=== PATIENT | female | born 1950 | race Caucasian/White ===

== ENCOUNTER 2020-10-18 12:53 | Outpatient (CLI) | payer MEDICARE, OTHER, SELFPAY ==
--- NOTE | ~2020-10-18 | MM_ITS ---
EXAMINATION: MM screening humberto BI w toshia HISTORY: Screening mammogram TECHNIQUE: Craniocaudal and mediolateral oblique 3-D tomosynthesis images were obtained and synthetic 2-D images were generated. CAD analysis was submitted and interpreted. COMPARISON: 06/21/2019, 05/19/2017, 01/06/2016 bilateral digital screening mammogram examinations BREAST PARENCHYMAL COMPOSITION: There are scattered areas of fibroglandular density. FINDINGS: There is no evidence of suspicious mass, calcification, or architectural distortion to sugg est malignancy in either breast. There has been no suspicious interval change. IMPRESSION: 1. No mammographic evidence of malignancy. 2. Recommend routine screening mammography in one year. BI-RADS Category 1: Negative Reviewed, dictated and finalized at location B. CIATE PROFESSOR OF KINESIOLOGY
--- NOTE | ~2020-10-18 | DEXA_ITS ---
Bone Density Report Name: Eleni Hull Age: 70 Sex: Female Ethnicity: White Date of : 1950 Indication: osteopenia; parental hip fracture; Referring Provider: ARYAN KAUFFMAN Study: Bone densitometry was performed. Exam Date: October 18, 2020 Accession number: [id number] Bone Density: Region BMD T-score Z-score Classification AP Spine (L1-L4) 0.824 -2.0 0.1 Osteopenia Femoral Neck (Left) 0.705 -1.3 0.5 Osteopenia Total Hip (Left) 0.834 -0.9 0.6 Normal Total Hip Bilateral Avg 0.834 -0.9 0.6 Normal Femoral Neck (Right) 0.682 -1.5 0.3 Osteopenia Total Hip (Right) 0.833 -0.9 0.6 Normal World Health Organization criteria for BMD impression classify patients as: Normal (T-score at or above -1.0), Osteopenia (T-score between -1.0 and -2.5), or Osteoporosis (T-score at or below -2.5). 10-year Fracture Risk(1): Major Osteoporotic Fracture 16% Hip Fracture 3.1% Reported Risk Factors: [place] (), Neck BMD=0.682, BMI=26.8, parental fracture (1) FRAX(R) Version 3.08. Fracture probability calculated for an untreated patient. Fracture probability may be lower if the patient has received treatment. Previous Exams: Region Exam Age BMD T-score BMD Change BMD Change Date g/cm2 vs Baseline vs Previous AP Spine(L1-L4) 10/18/2020 70 0.824 -2.0 -0.039(-4.5%)* -0.039(-4.5%)* 01/08/2016 65 0.863 -1.7 Total Hip(Left) 10/18/2020 70 0.834 -0.9 -0.044(-5.0%)* -0.044(-5.0%)* 01/08/2016 65 0.878 -0.5 Total Hip(Right) 10/18/2020 70 0.833 -0.9 -0.030(-3.5%)* -0.030(-3.5%)* 01/08/2016 65 0.863 -0.6 *Denotes significance at 95% confidence level, LSC for AP Spine = 0.022 g/cm2, LSC for Total Hip = 0.027 g/cm2 Clinical Information Provided by Patient: Parent has had a hip fracture Has used the following medications: Calcium Patient maximum height was 60 Menopause Age: 50 Onset of menses at age 14 Number of children 2 Impression: The patient has low bone mass, based on the Total Spine T-score. The patient has an estimated ten-year risk of hip fracture of 3.1% and an estimated ten-year risk of major fracture of 16%, based on the WHO FRAX algorithm. The patient has risk factors, including: parental hip fracture. The BMD for the AP Spine(L1-L4) decreased, changing by -4.5% since the last DXA exam. The BMD for the Total Hip(Left) decreased, changing by -5.0% since the last DXA exam. The BMD for the Total Hip(Right) decreased, changing by -
== END 2020-10-18 12:54 | disposition home or self-care (01) ==
PROVIDERS: PCP Family Medicine
DX: Z12.31 Encounter for screening mammogram for malignant neoplasm of breast (principal); Z78.0 Asymptomatic menopausal state; M85.89 Other specified disorders of bone density and structure, multiple sites
CPT/HCPCS: 77063; 77067; 77080

== ENCOUNTER 2021-11-10 15:43 | Emergency (ER) | payer MEDICARE, OTHER, SELFPAY ==
--- NOTE | ~2021-11-10 | XR_ITS ---
XR wrist LT min 3V DATE: 11/10/2021 16:02 INDICATION: Generalized left wrist pain following a fall this afternoon TECHNIQUE: 4 views COMPARISON: None FINDINGS: There is diffuse osteopenia. There is a comminuted nondisplaced intra-articular fracture of the distal radius. Normal antegrade in clination of the distal radial articular surface. Normal alignment at the radiocarpal joint. IMPRESSION: Nondisplaced comminuted intra-articular fracture of the distal radius Reviewed, dictated and finalized at location A. TOR IMPRESSION: Nondisplaced comminuted intra-articular fracture of the distal radi us
[2021-11-10 15:51] VITALS: BP 186/79; PULSE 93; RESP 12; TEMP 37.2; O2SAT 99
--- NOTE | 2021-11-10 16:46 | ED.GENADULT ---
HPI - General Adult General Chief complaint: Extremity Injury, Upper Stated complaint: lt wrist inj Source: patient Mode of arrival: ambulatory Limitations: no limitations History of Present Illness HPI narrative: Patient presents for evaluation of left wrist pain. She indicates she was watching her grandchildren ice-skating just prior to arrival when she slipped on the ice. She landed with her left arm outstretched. She did not hit her head nor have loss of consciousness. She is not on blood thinners. She now reports 8 out of 10 pain in the left wrist. Pain is worse with movement. She is right-hand dominant. Denies paresthesias. She tried taking ibuprofen for her pain with some improvement in her symptoms thereafter. Related Data Home Medications Medication Instructions Recorded Confirmed calcium carbonate 600 mg calcium 600 mg PO BID 06/07/21 11/10/21 (1,500 mg) tablet ergocalciferol (vitamin D2) 50,000 50,000 unit PO MONTHLY tablet 06/07/21 08/21/21 unit tablet Allergies Allergy/AdvReac Type Severity Reaction Status Date / Time cimetidine Allergy Unknown Unknown Verified 11/10/21 15:53 erythromycin base Allergy Unknown Unknown Verified 11/10/21 15:53 Penicillins Allergy Unknown Unknown Verified 11/10/21 15:53 ciprofloxacin AdvReac Mild general Verified 11/10/21 15:53 aching from generic med Review of Systems Review of Systems: CONSTITUTIONAL: Denies fever, chills, or sweats. EYES: Denies visual changes, redness, or discharge. ENT: Denies rhinorrhea, congestion, sore throat, or otalgia. CARDIOVASCULAR: Denies chest pain, palpitations, or edema. RESPIRATORY: Denies cough or dyspnea. GASTROINTESTINAL: Denies abdominal pain, nausea, vomiting, or diarrhea. GENITOURINARY: Denies dysuria or hematuria. SKIN: Denies rash or itching. MUSCULOSKELETAL: Reports left wrist pain. Denies back pain NEUROLOGIC: Denies headache, numbness, dizziness, or weakness. PSYCHIATRIC: Denies anxiety or depression. [facility] Past Medical History Medical History Chronic neck pain Dyslipidemia Environmental allergies Osteopenia Surgical History Surgical History No pertinent past surgical history Family History Family History Father Heart disease Social History Social History Smoking status: Never smoker Second hand tobacco smoke exposure: No Additional smoking assessment comments: no smoke around as child Alcohol intake: never Substance use: never Substance use type: does not use Exam Narrative: GENERAL: Well-appearing, well-nourished, and in no acute distress. HEAD: Normocephalic, atraumatic. EYES: PERRLA and EOMI. ENT: Nares clear, no rhinorrhea or epistaxis. Mucous membranes moist. Oropharynx without tonsillar hypertrophy exudate or other lesions. Bilateral TMs pearly bañuelos nonbulging NECK: Supple. No adenopathy or masses. No carotid bruits or JVD CHEST: Clear to auscultation. No respiratory distress. No wheezes rales or rhonchi HEART: Regular rate and rhythm. No murmur heard. Normal peripheral pulses. ABDOMEN: Soft, nontender, nondistended, normal active bowel sounds. EXTREMITIES: Heide over medial aspect of the left wrist. Trace swelling noted to the left wrist. No crepitus. 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 5/5 hand popped corn oven attendant strength right SKIN: Warm, dry, no rash. NEURO: No focal deficits. Alert and oriented x3. PSYCH: Normal mood and affect. Course Course Emergency Course: This is a 71-year-old female that presents with complaints of left wrist pain following a fall just prior to arrival. X-ray showed closed distal radius fracture. She was placed in a sugar tong splint provided with a sling. Post splint neurovascular check intact. Blood pressure was
== END 2021-11-10 17:13 | disposition home or self-care (01) ==
PROVIDERS: Emergency Provider Nurse Practitioner; PCP Family Medicine
DX: S52.572A Other intraarticular fracture of lower end of left radius, initial encounter for closed fracture (principal); W00.0XXA Fall on same level due to ice and snow, initial encounter; E78.5 Hyperlipidemia, unspecified; M81.0 Age-related osteoporosis without current pathological fracture
CPT/HCPCS: 29125; 73110; 99214; A4565; G0463

== ENCOUNTER 2022-10-21 14:00 | Outpatient (CLI) | payer OTHER, MEDICARE, SELFPAY ==
--- NOTE | ~2022-10-21 | DEXA_ITS ---
Bone Density Report Name: HOLLEY FERNANDEZ Age: 72 Sex: Female Ethnicity: White Date of : 1950 Indication: osteopenia; parental hip fracture; prior fracture; postmenopausal Referring Provider: MEJIA, ARIS Study: Bone densitometry was performed. Exam Date: October 21, 2022 Accession number: [id number] Bone Density: Region BMD T-score Z-score Classification AP Spine(L1, L2, L3) 0.737 -2.6 -0.4 Osteoporosis Femoral Neck (Left) 0.705 -1.3 0.6 Osteopenia Total Hip (Left) 0.832 -0.9 0.7 Normal Femoral Neck (Right) 0.692 -1.4 0.5 Osteopenia Total Hip (Right) 0.811 -1.1 0.5 Osteopenia Total Hip Mean 0.821 -1.0 0.6 Normal World Health Organization criteria for BMD impression classify patients as: Normal (T-score at or above -1.0), Osteopenia (T-score between -1.0 and -2.5), or Osteoporosis (T-score at or below -2.5). 10-year Fracture Risk: FRAX not reported because: Some T-score for Spine Total or Hip Total or Femoral Neck at or below -2.5 Prior hip or vertebral fracture Previous Exams: Region Exam Age BMD T-score BMD Change BMD Change Date g/cm2 vs Baseline vs Previous AP Spine (L1-L3) 10/21/2022 72 0.737 -2.6 -0.121 (-14.2% -0.080 (-9.8%) 10/18/2020 70 0.817 -1.8 -0.041 (-4.8%) -0.041 (-4.8%) 01/08/2016 65 0.858 -1.5 Total Hip(Left) 10/21/2022 72 0.832 -0.9 -0.046 (-5.2%) -0.002 (-0.2%) 10/18/2020 70 0.834 -0.9 -0.044 (-5.0%) -0.044 (-5.0%) 01/08/2016 65 0.878 -0.5 Total Hip(Right) 10/21/2022 72 0.811 -1.1 -0.052 (-6.0%) -0.022 (-2.6%) 10/18/2020 70 0.833 -0.9 -0.030 (-3.5%) -0.030 (-3.5%) 01/08/2016 65 0.863 -0.6 *Denotes significance at 95% confidence level, LSC for AP Spine = 0.022 g/cm2, LSC for Total Hip = 0.027 g/cm2 Clinical Information Provided by Patient: Have had a previous hip or vertebral fracture Has had a low trauma fracture Parent has had a hip fracture Has used the following medications: Vitamin D, Calcium Patient maximum height was 60 Menopause Age: 50 Onset of menses at age 14 Number of children 2 Impression: The patient has established osteoporosis, based on the Total Spine T-score and the existence of a prior fracture. The patient has risk factors, including: parental hip fracture, previous fracture. The BMD for the AP Spine (L1-L3) decreased, changing by -9.8% since the last DXA exam. Discussion: HIGH RISK OF FRACTURE. BONE DENSITY IS UNDESIRABLY LOW AT ONE OR M
== END 2022-10-21 14:01 | disposition home or self-care (01) ==
LOC: ANHIMG 14:06
PROVIDERS: PCP Family Medicine; Visit Provider Internal Medicine
DX: M81.0 Age-related osteoporosis without current pathological fracture (principal); M85.852 Other specified disorders of bone density and structure, left thigh; M85.851 Other specified disorders of bone density and structure, right thigh; Z87.81 Personal history of (healed) traumatic fracture
CPT/HCPCS: 77080

== ENCOUNTER → 2023-02-10 15:44 | Outpatient (CLI) | payer MEDICARE, SELFPAY ==
--- NOTE | ~2023-02-10 | XR_ITS ---
Lumbosacral Spine: AP and lateral views Clinical History: Pain Findings: The normal lordotic curve is maintained. No fracture or subluxation evident. There is mild degenerative disc narrowing throughout the lumbar spine. There is mild to moderate facet arthropathy, worse from L3 through S1. The sacroiliac joints are normally outlined. Impression: Mild degenerative spondylosis overall, as detailed above. Reviewed, dictated and finalized at location . Impression: Mild degenerative spondylosis overall, as detailed above.
== END ==
PROVIDERS: PCP Family Medicine; Visit Provider Family Medicine
DX: M47.816 Spondylosis without myelopathy or radiculopathy, lumbar region (principal)
CPT/HCPCS: 72100

== ENCOUNTER 2023-10-02 14:16 | Emergency (ER) | payer MEDICARE, SELFPAY ==
--- NOTE | 2023-10-02 14:36 | ED.GENADULT ---
HPI - General Adult General Chief complaint: Upper Respiratory Infection Stated complaint: Cough, Congestion Source: patient, RN notes reviewed and old records reviewed Mode of arrival: ambulatory Limitations: no limitations History of Present Illness HPI narrative: 73-year-old female presents with complaint cough and congestion this started this a.m. Patient states her PCP and was told she probably did have pneumonia but could come here to get a chest x-ray if she was concerned. Patient denies shortness of breath, chest pain, wheezing, dizziness, fevers. Patient states to COVID test at home today that was negative. MD complaint: Cough Onset (ago): day(s) (1) Related Data Home Medications Medication Instructions Recorded Confirmed calcium carbonate 600 mg calcium 600 mg PO BID 06/07/21 10/02/23 (1,500 mg) tablet (Calcium) Allergies Allergy/AdvReac Type Severity Reaction Status Date / Time cimetidine Allergy Unknown Unknown Verified 10/02/23 14:41 erythromycin base Allergy Unknown Unknown Verified 10/02/23 14:41 Penicillins Allergy Unknown Unknown Verified 10/02/23 14:41 Review of Systems Constitutional: Constitutional: Reports no additional constitutional complaints, Denies body ache(s), Denies chills, Denies fatigue, Denies fever(s) and Denies headache(s) Eyes: Eyes: Reports no additional eye complaints and Denies blurry vision ENT: Reports system reviewed and no additional complaints, except as documented, Denies vertigo, Denies dizziness, Denies ear discharge, Denies otalgia, Denies facial pain, Denies headache(s), Reports nasal congestion, Denies nasal discharge, Denies sinus pain, Denies sinus pressure and Denies sore throat Cardiovascular: Cardiovascular: Reports no additional cardiovascular complaints, Denies chest pain, Denies chest pain at rest, Denies rapid heart rate and Denies dyspnea Respiratory: Respiratory: Reports no additional respiratory complaints, Denies chest congestion, Reports cough, Denies pain on inspiration, Denies pain with cough and Denies dyspnea Gastrointestinal: Gastrointestinal: Denies abdominal pain, Denies diarrhea, Denies nausea and Denies vomiting Integumentary/Breasts: Skin/Breast: Denies rash Neurologic: Reports system reviewed and no additional complaints, except as documented, Denies vertigo, Denies dizziness and Denies headache(s) Endocrine: Endocrine: Denies fatigue [facility] Past Medical History Medical History Chronic low back pain Chronic neck pain Dyslipidemia Environmental allergies Osteopenia Surgical History Surgical History No pertinent past surgical history Family History Family History Father Heart disease Social History Social History Smoking status: Never smoker Second hand tobacco smoke exposure: No Additional smoking assessment comments: no smoke around as child Alcohol intake: never Substance use: never Substance use type: does not use Lack of Transportation: No Lack of Food: Never True Current Housing: I Have Housing Concerned About Future Housing: No Difficulty Paying Gas/Electric Bills: No Difficulty Paying for Meds: No Currently Unemployed: No Education: High School Diploma/GED Difficulty w/ Childcare or Family Care: No Occupation/Education: retired Gender identity (if verbalized by the patient): Female Spiritual care concerns: No Comments At the time of my signature, I reviewed and agree with the nursing past medical, surgical, social, and family history. There is no relevant family history pertinent to the patient complaint. Exam Const: General: cooperative, healthy appearing, no acute distress and well nourished Nutritional Appearance: well nourished Orientation/conscious
[2023-10-02 14:39] VITALS: BP 159/85; PULSE 97; RESP 16; TEMP 36.9; O2SAT 98
== END 2023-10-02 14:57 | disposition home or self-care (01) ==
PROVIDERS: Emergency Provider Registered Nurse; PCP Family Medicine
DX: J06.9 Acute upper respiratory infection, unspecified (principal); E78.5 Hyperlipidemia, unspecified
CPT/HCPCS: 99213; G0463

== ENCOUNTER 2023-12-09 00:13 | Day surgery (SDC) | payer MEDICARE, SELFPAY ==
[2023-11-17 09:47] VITALS: BMI 27.3
--- NOTE | 2023-12-05 12:55 | SUR.PREOP ---
Patient called regarding upcoming procedure. Voicemail left regarding appointment times.
--- NOTE | 2023-12-08 14:51 | PM.HPGS ---
History of Present Illness History of Present Illness Consent: Risks, benefits, and alternatives have been discussed and questions answered. Patient agrees to proceed with procedure. Chief complaint: History colon polyps Narrative: Eleni Hull is a 73 year old female Referred for colon cancer screening. She has a history of polyps. Review of Systems Review of Systems: All systems reviewed & are unremarkable except as noted in HPI and below PMFSH Past Medical History Medical History Chronic low back pain Chronic neck pain Closed left radial fracture (~10/2021) Dyslipidemia Environmental allergies History of colon polyps Osteoporosis Family History Family History Father Heart disease Social History Social History Smoking status: Never smoker Second hand tobacco smoke exposure: No Additional smoking assessment comments: no smoke around as child Alcohol intake: never Substance use: never Substance use type: does not use Lack of Transportation: No Lack of Food: Never True Current Housing: I Have Housing Concerned About Future Housing: No Difficulty Paying Gas/Electric Bills: No Difficulty Paying for Meds: No Currently Unemployed: No Education: High School Diploma/GED Difficulty w/ Childcare or Family Care: No Living arrangements: with family Occupation/Education: retired Gender identity (if verbalized by the patient): Female Spiritual care concerns: No Meds Home Medications and Allergies Home Medications Medication Instructions Recorded Confirmed Type calcium carbonate 600 mg calcium 600 mg PO BID 06/07/21 12/09/23 History (1,500 mg) tablet (Calcium) fluticasone propionate 50 2 spray intranasal DAILY 10/20/23 12/09/23 History mcg/actuation nasal spray,suspension (Flonase Allergy Relief) vitamins A,C,I-mdaf-phdmns 2,148 2 tablet PO BID 10/20/23 12/09/23 History mcg-113 mg-45 mg-17.4 mg tablet (PreserVision AREDS) atorvastatin 20 mg tablet (Lipitor) 20 mg PO QHS #90 tabs 10/29/23 12/09/23 Rx cholecalciferol (vitamin D3) 1,250 1,250 mcg PO WEEKLY #12 tabs 10/29/23 12/09/23 Rx mcg (50,000 unit) tablet cyanocobalamin (vitamin B-12) 1,000 mcg sublingual DAILY #90 tabs 10/29/23 12/09/23 Rx 1,000 mcg sublingual tablet Allergies Allergy/AdvReac Type Severity Reaction Status Date / Time cimetidine Allergy Unknown Unknown Verified 12/09/23 09:09 erythromycin base Allergy Unknown Unknown Verified 12/09/23 09:09 Penicillins Allergy Unknown Unknown Verified 12/09/23 09:09 Exam Const: General: alert Orientation/consciousness: patient oriented x3 Resp: Auscultation: clear to auscultation bilaterally Cardio: Rhythm: regular rhythm GI: GI Palp: Yes Soft to palpation and No Tenderness to palpation present (GI) Neuro: General: patient oriented x3 Assessment and Plan Assessment and plan (1) Colon cancer screening: Code(s): Z12.11 - Encounter for screening for malignant neoplasm of colon Status: Acute Assessment and Plan: Colonoscopy with possible biopsy or polypectomy or cautery or injection of substances.
[2023-12-09 09:10] VITALS: BP 163/75; PULSE 80; RESP 16; TEMP 36.6; O2SAT 99
[2023-12-09] MEDS: LACTATED RINGERS 1,000 ML 150 ML IV CONT (09:25)
--- NOTE | 2023-12-09 09:39 | WPDANESEPPF ---
Anes - Initial Pre Proc Eval Procedure: Operation Date: 12/09/23 10:30 Proposed Procedures p Colonoscopy - Osmin Valentine MD Date/Time: 12/09/23 09:39 Surgeon: Osmin Valentine MD Pre Op Diagnosis: History colon polyps Patient Data Age: 73 Gender: F Height: 1.52 m Weight: 62.3 kg Last Vital Signs Temp 36.6 C 12/09/23 09:10 Pulse 80 12/09/23 09:10 Resp 16 12/09/23 09:10 BP 163/75 H 12/09/23 09:10 Pulse Ox 99 12/09/23 09:10 O2 Del Method Room Air 12/09/23 09:10 Allergies Allergy/AdvReac Type Severity Reaction Status Date / Time cimetidine Allergy Unknown Unknown Verified 12/09/23 09:09 erythromycin base Allergy Unknown Unknown Verified 12/09/23 09:09 Penicillins Allergy Unknown Unknown Verified 12/09/23 09:09 Home Medications Medication Instructions Recorded Confirmed Type calcium carbonate 600 mg calcium 600 mg PO BID 06/07/21 12/09/23 History (1,500 mg) tablet (Calcium) fluticasone propionate 50 2 spray intranasal DAILY 10/20/23 12/09/23 History mcg/actuation nasal spray,suspension (Flonase Allergy Relief) vitamins A,C,B-njnz-hdbyhb 2,148 2 tablet PO BID 10/20/23 12/09/23 History mcg-113 mg-45 mg-17.4 mg tablet (PreserVision AREDS) atorvastatin 20 mg tablet (Lipitor) 20 mg PO QHS #90 tabs 10/29/23 12/09/23 Rx cholecalciferol (vitamin D3) 1,250 1,250 mcg PO WEEKLY #12 tabs 10/29/23 12/09/23 Rx mcg (50,000 unit) tablet cyanocobalamin (vitamin B-12) 1,000 mcg sublingual DAILY #90 tabs 10/29/23 12/09/23 Rx 1,000 mcg sublingual tablet Patient hx anesthesia problems: none Family hx anesthesia problems: none Results Review: All pre-operative results and documents have been reviewed as part of the pre-operative evaluation. [facility] Past Medical History Medical History Chronic low back pain Chronic neck pain Closed left radial fracture (~10/2021) Dyslipidemia Environmental allergies History of colon polyps Osteoporosis Family History Family History Father Heart disease Social History Social History Smoking status: Never smoker Second hand tobacco smoke exposure: No Additional smoking assessment comments: no smoke around as child Alcohol intake: never Substance use: never Substance use type: does not use Lack of Transportation: No Lack of Food: Never True Current Housing: I Have Housing Concerned About Future Housing: No Difficulty Paying Gas/Electric Bills: No Difficulty Paying for Meds: No Currently Unemployed: No Education: High School Diploma/GED Difficulty w/ Childcare or Family Care: No Living arrangements: with family Occupation/Education: retired Gender identity (if verbalized by the patient): Female Spiritual care concerns: No Anes - Eval Final PreProcedure Day of Procedure 12/09/23 09:39 Patient weight: overweight Heart: regular rate and rhythm Lungs: clear to auscultation Airway: Mallampati scale class II Neurological: alert and oriented Last oral intake: >/= 8 hours ASA classification: II Emergent: no Anesthetic plan: proceed Anesthesia type and monitoring: general GIVS and standard monitoring Results Review: All pre-operative results and documents have been reviewed as part of the pre-operative evaluation. Informed Consent: The patient's anesthetic plan and its attendant risks and benefits were discussed with the patient/family/POA. Questions were solicited and answers provided to the satisfaction of the patient/family/POA.
[2023-12-09 10:23] VITALS: BP 89/50; PULSE 63; RESP 20; O2SAT 99
[2023-12-09 10:33] VITALS: BP 97/52; PULSE 64; RESP 20; O2SAT 100
[2023-12-09 10:43] VITALS: BP 117/66; PULSE 62; RESP 20; O2SAT 100
== END 2023-12-09 10:54 | disposition home or self-care (01) ==
PROVIDERS: PCP Family Medicine; Visit Provider Internal Medicine Gastroenterology
PROC: 0DJD8ZZ Inspection of Lower Intestinal Tract, Via Natural or Artificial Opening Endoscopic (ICD-10-PCS; CPT 45378; principal; 2023-12-09 10:30)
DX: Z12.2 Encounter for screening for malignant neoplasm of respiratory organs (principal); E78.5 Hyperlipidemia, unspecified; M81.0 Age-related osteoporosis without current pathological fracture; G89.29 Other chronic pain; M54.50 Low back pain, unspecified; M54.2 Cervicalgia; Z86.010 Personal history of colon polyps; Z82.49 Family history of ischemic heart disease and other diseases of the circulatory system
CPT/HCPCS: G0105; J2704; J7120

== ENCOUNTER 2024-01-21 11:20 | Outpatient (CLI) | payer MEDICARE, SELFPAY ==
--- NOTE | ~2024-01-21 | MM_ITS ---
EXAMINATION: MM screening humberto BI w toshia HISTORY: Screening mammogram TECHNIQUE: Craniocaudal and mediolateral oblique 3-D tomosynthesis images were obtained and synthetic 2-D images were generated. CAD analysis was submitted and interpreted. COMPARISON: 10/18/2020 bilateral screening mammogram BREAST PARENCHYMAL COMPOSITION: There are scattered areas of fibroglandular density. FINDINGS: There is no evidence of suspicious mass, calcification, or architectural distortion to sugg est malignancy in either breast. There has been no suspicious interval change. IMPRESSION: 1. No mammographic evidence of malignancy. 2. Recommend routine screening mammography in one year. BI-RADS Category 1: Negative Reviewed, dictated and finalized at location A.
== END 2024-01-21 11:21 ==
LOC: MICIMG 11:21
PROVIDERS: PCP Family Medicine; Visit Provider Family Medicine
DX: Z12.31 Encounter for screening mammogram for malignant neoplasm of breast (principal)
CPT/HCPCS: 77063; 77067

== ENCOUNTER 2024-12-29 15:48 | Outpatient (CLI) | payer MEDICARE, OTHER, SELFPAY ==
--- NOTE | ~2024-12-29 | XR_ITS ---
3 VIEWS LUMBAR SPINE Ordering provider: Tonya Reynolds MD History: . M54.42 - Lumbago with sciatica, left side . Comparison: None. FINDINGS: VERTEBRAL BODIES:Compression fracture involving the superior endplate of T12 with anterior loss of he ight suggestive of acute compression fracture. MRI is advised. Otherwise, No visible fracture or sub luxation. DISK SPACES: Narrowing of the disc L3-L4, L4-L5 and L5-S1.. Joint disease at the level of L5-S1. SOFT TISSUES: Atherosclerotic changes of the aorta. IMPRESSION: Compression fracture of T12 most likely acute. MRI evaluation advised. Multilevel degenerative disc disease. Reviewed, dictated and finalized at location A.
--- NOTE | ~2024-12-29 | XR_ITS ---
HISTORY: M25.511 - Pain in right shoulder COMPARISON: None TECHNIQUE: 2 views of the right shoulder were performed FINDINGS: No acute fracture. The glenohumeral and acromioclavicular joint space is maintained The visualized portion of the adjacent right lung is clear. The humeral head is well seated within the glenoid fossa. IMPRESSION: No acute fracture or anterior dislocation. Reviewed, dictated and finalized at location A.
== END 2024-12-29 15:49 | disposition home or self-care (01) ==
LOC: GOSHIMG 15:49
PROVIDERS: PCP Family Medicine; Visit Provider Family Medicine
DX: S22.080A Wedge compression fracture of T11-T12 vertebra, initial encounter for closed fracture (principal); X58.XXXA Exposure to other specified factors, initial encounter; M54.42 Lumbago with sciatica, left side; M51.360 Other intervertebral disc degeneration, lumbar region with discogenic back pain only; M51.370 Other intervertebral disc degeneration, lumbosacral region with discogenic back pain only; M25.511 Pain in right shoulder; G89.29 Other chronic pain
CPT/HCPCS: 72110; 73030

== ENCOUNTER 2025-01-06 13:09 | Outpatient (CLI) | payer MEDICARE, SELFPAY ==
--- NOTE | ~2025-01-06 | MR_ITS ---
EXAMINATION: MR thoracic spine wo con DATE: 01/06/2025 14:02 INDICATION: T12 compression fracture. TECHNIQUE: Magnetic resonance imaging (MRI) of the thoracic spine was performed without intravenous c ontrast. Sagittal localizer T1-weighted FSE of the cervical spine was obtained. Thoracic spine sequen marvin included sagittal T2-weighted FSE, sagittal T1-weighted FSE, sagittal T2-weighted FS FSE, and axi al T2-weighted FSE. COMPARISON: Lumbar spine radiographs 12/29/2024 FINDINGS: There is kyphosis of thoracic spine. There is 10 degrees levoscoliosis of upper thoracic sp ine. There is mild chronic height loss of T3-T8 vertebral bodies. There is a compression fracture of T12 with 1/5 loss of height and edema-like marrow signal intensity. There is moderately decreased dis c height at T6-T7, T7-T8, T8-T9, and T9-T10. The discs are bulging from T6-T7 through T9-T10 and at T 11-T12 with mild central canal stenosis. At T12-L1, there is a central extrusion with mild central ca nal stenosis. There is multilevel facet joint osteoarthritis, severe at several levels. On the right, there is ankylosis of the right T5-T6 facet joint. On the right, there is mild neural foraminal sten osis at T3-T4, T4-T5, and T6-T7. The spinal cord signal intensity is normal. The conus medullaris is at T12-L1. IMPRESSION: 1. Subacute T12 compression fracture. 2. Moderate thoracic spondylosis. 3. Upper thoracic levoscoliosis. Thoracic kyphosis. Reviewed, dictated and finalized at location A.
== END 2025-01-06 13:10 | disposition home or self-care (01) ==
LOC: GOSHIMG 13:10
PROVIDERS: PCP Family Medicine; Visit Provider Family Medicine
DX: S22.080A Wedge compression fracture of T11-T12 vertebra, initial encounter for closed fracture (principal); X58.XXXA Exposure to other specified factors, initial encounter; M47.814 Spondylosis without myelopathy or radiculopathy, thoracic region; M41.84 Other forms of scoliosis, thoracic region
CPT/HCPCS: 72146

== ENCOUNTER 2025-01-31 10:52 | Outpatient (CLI) | payer MEDICARE, SELFPAY ==
--- NOTE | ~2025-01-31 | MM_ITS ---
EXAMINATION: MM screening [facility] BI w [facility] HISTORY: Screening TECHNIQUE: Craniocaudal and mediolateral oblique 3-D tomosynthesis images were obtained and synthetic 2-D images were generated. CAD analysis was submitted and interpreted. COMPARISON: 01/21/2024 and dating back to 05/19/2017 BREAST PARENCHYMAL COMPOSITION: There are scattered areas of fibroglandular density. FINDINGS: Stable parenchymal pattern without suspicious microcalcifications, architectural distortion, discrete masses or significant asymmetry. IMPRESSION: 1. No mammographic evidence of malignancy. 2. Recommend routine screening mammography in one year. BI-RADS Category 1: Negative Reviewed, dictated and finalized at location A.
== END 2025-01-31 10:53 | disposition home or self-care (01) ==
LOC: MICIMG 10:52
PROVIDERS: PCP Family Medicine; Visit Provider Family Medicine
DX: Z12.31 Encounter for screening mammogram for malignant neoplasm of breast (principal)
CPT/HCPCS: 77063; 77067

== ENCOUNTER 2025-03-08 11:00 | Outpatient (RCR) | payer MEDICARE, SELFPAY ==
--- NOTE | 2025-01-21 16:25 | OPREHPOC ---
Outpatient Therapy Plan of Care This is a Multidisciplinary Plan of Care that may contain components documented by all disciplines (PT, OT, and ST.) PT Problem 1 PT Problem #1 Knowledge Deficit PT Goal 1 Goal / Goal Update [place] with HEP Target Visit 4 PT Goal 2 Goal / Goal Update Report no back pain greater than 2/10 Target Visit 8 PT Problem 2 PT Problem #2 Impaired Range of Motion PT Goal 1 Goal / Goal Update 1. Improve ana hip abduction to 40 degrees to promote improved capsular mobility 2. Improve R shoulder flexion ROM to 165 degrees to improve active reach 3. Improve R shoulder external rotation ROM to 85 degrees for improved capsular mobility and self care Target Visit 8 PT Problem 3 PT Problem #3 Impaired Strength PT Goal 1 Goal / Goal Update Improve ana hip abduction strength to 4/5 to improve lateral stability of hip and pelvis Target Visit 8
--- NOTE | 2025-01-21 16:25 | PTOPEVAL1 ---
Assessment and note entered by Lobo Lacy, PT Evaluation Information Assessment Status Evaluation Diagnosis T11-T12 Compression fracture ICD-10 Condition Codes (PT) Pain in right shoulder M25.511 Onset October 2024 Subjective Information Reports that she had a fall about 3 months ago which resulted in the current compression fracture . She has also bee dealing with chronic shoulder pain from prior to the fall which some of it may have been contributed to. Has a history of osteoporosis. Denies any new onset dizziness or weakness. Majority of her pain is above the tailbone and mostly on the right side. She is right handed so the pain is on her dominant side and arm. Reported Pain Level Pain Score 2: Self Report Assessment PT Clinical Summary Patient presents with poor right hip and right shoulder mobility. Gait cycle indicated increased lumbar extension in terminal stance likely aggravating lumbar symptoms. Shoulder fairly strong and mobile below 90 degrees but has a lot of weakness and limited mobility over 90. Overall patient will benefit form skilled therapy to promote lumbar stabilization and decompression with exterminator helper termite goals of hip mobility and strength. We will emphasize postural strengthening of shoulders and mobility for functional reach. Plan of Care Interventions Manual Therapy,Neuro Re-education,Therapeutic Activities,Therapeutic Exercise PT Services Indicated Yes Treatment Frequency and 2x/week for 8 visits Duration These treatments will address the objective and functional deficits as defined above. The patient will be advanced safely and appropriately in order for the patient to progress towards his/her prior level of function. Additional exercises will be introduced and as well as a comprehensive home exercise program upon discharge, if needed, ?to ensure carryover of functional gains achieved in the clinic. This treatment plan has been reviewed and agreement upon by the patient.
--- NOTE | 2025-03-08 16:33 | OPREHPOC ---
Outpatient Therapy Plan of Care This is a Multidisciplinary Plan of Care that may contain components documented by all disciplines (PT, OT, and ST.) PT Problem 1 PT Problem #1 Knowledge Deficit PT Goal 1 Goal / Goal Update [place] with HEP Target Visit 4 Progress Met PT Goal 2 Goal / Goal Update Report no back pain greater than 2/10 Target Visit 8 Progress Met PT Problem 2 PT Problem #2 Impaired Range of Motion PT Goal 1 Goal / Goal Update 1. Improve ana hip abduction to 40 degrees to promote improved capsular mobility 2. Improve R shoulder flexion ROM to 165 degrees to improve active reach 3. Improve R shoulder external rotation ROM to 85 degrees for improved capsular mobility and self care Target Visit 8 Progress Met PT Problem 3 PT Problem #3 Impaired Strength PT Goal 1 Goal / Goal Update Improve ana hip abduction strength to 4/5 to improve lateral stability of hip and pelvis Target Visit 8 Progress Met
--- NOTE | 2025-03-08 16:33 | PTOPDC ---
Assessment and note entered by Lobo Lacy, PT Evaluation Information Assessment Status Discharge Diagnosis T11-T12 Compression fracture ICD-10 Condition Codes (PT) Pain in right shoulder M25.511 Onset October 2024 Subjective Information Patient reports that overall she is doing much better. She has noted improved strength and stability and improved function in shoulder. Plans to continue exercises at home. Requests discharge at this time. Reported Pain Level Pain Score 0: Self Report Assessment PT Clinical Summary Patient has met all goals for therapy and is suitable for discharge at this time to [facility]. Will continue exercise for hip and shoulder mobility. Plan of Care PT Services Indicated Yes
== END 2025-03-09 08:52 | disposition home or self-care (01) ==
LOC: ANHGOSHPT 11:00
PROVIDERS: PCP Family Medicine; Visit Provider Family Medicine
DX: M54.42 Lumbago with sciatica, left side (principal); S22.080A Wedge compression fracture of T11-T12 vertebra, initial encounter for closed fracture; G89.29 Other chronic pain
CPT/HCPCS: 97110; 97140; 97161; 97530

== ENCOUNTER 2025-07-12 10:30 | Outpatient (CLI) | payer MEDICARE, SELFPAY ==
--- NOTE | ~2025-07-12 | DEXA_ITS ---
Bone Density Report Name: HOLLEY FERNANDEZ Age: 74 Sex: Female Ethnicity: White Date of : 1950 Indication: postmenopausal osteoporosis; monitoring treatment; height loss; prior fracture; Referring Provider: Tonya Reynolds Study: Bone densitometry was performed. Exam Date: July 12, 2025 Accession number: [id number] Bone Density: Region BMD T-score Z-score Classification AP Spine(L1, L2, L3) 0.779 -2.2 0.2 Osteopenia Femoral Neck (Left) 0.657 -1.7 0.3 Osteopenia Total Hip (Left) 0.746 -1.6 0.2 Osteopenia Femoral Neck (Right) 0.683 -1.5 0.6 Osteopenia Total Hip (Right) 0.751 -1.6 0.2 Osteopenia Total Hip Mean 0.749 -1.6 0.2 Osteopenia World Health Organization criteria for BMD impression classify patients as: Normal (T-score at or above -1.0), Osteopenia (T-score between -1.0 and -2.5), or Osteoporosis (T-score at or below -2.5). 10-year Fracture Risk: FRAX not reported because: Prior hip or vertebral fracture Treated for osteoporosis Previous Exams: -- Region Exam Age BMD T-score BMD Change BMD Change Date g/cm2 vs Baseline vs Previous -- AP Spine (L1-L3) 07/12/2025 74 0.779 -2.2 5.8%* 5.8%* 10/21/2022 72 0.737 -2.6 Total Hip(Left) 07/12/2025 74 0.746 -1.6 -10.3%* -10.3%* 10/21/2022 72 0.832 -0.9 Total Hip(Right) 07/12/2025 74 0.751 -1.6 -7.4%* -7.4%* 10/21/2022 72 0.811 -1.1 -- *Denotes significance at 95% confidence level, LSC for AP Spine = 0.022 g/cm2, LSC for Total Hip = 0.027 g/cm2 Clinical Information Provided by Patient: Have had a previous hip or vertebral fracture Has had a low trauma fracture Is being treated for osteoporosis Has used the following medications: Fosamax (i.e. alendronate), Vitamin D, Calcium Patient maximum height was 60 Menopause Age: 50 No regular weight bearing exercise Onset of menses at age 15 Number of children 2 Impression: The patient has low bone mass, based on the Total Spine T-score. The patient has risk factors, including: previous fracture. The BMD for the Total Hip(Left) decreased, changing by -10.3% since the last DXA exam. The BMD for the Total Hip(Right) decreased, changing by -7.4% since the last DXA exam. Discussion: SIGNIFICANT BONE LOSS OBSERVED. Adherence to therapy (including calcium and vitamin D intake) should be assessed. If compliance is not a factor, review management and exclusion of secondary causes of bone loss. It is important to ask patients whether they are taking their medications and to encourage continued and appropriate compliance with their osteoporosis therapies to reduce fracture risk. It is also important to review their risk factors and encourage appropriate calcium and vitamin D intakes, exercise, fall prevention and other lifestyle measures. Follow-Up: Consider a repeat BMD and Vertebral Fracture Assessment (VFA) exam in 2 years or sooner if medically necessary, to reassess this patient's status. Reported by: BRIDGETT on 07/12/2025 10:56:00 AM. Reviewed, dictated and finalized at location A.
== END 2025-07-12 10:31 | disposition home or self-care (01) ==
LOC: MICIMG 10:31
PROVIDERS: PCP Family Medicine; Visit Provider Family Medicine
DX: M85.89 Other specified disorders of bone density and structure, multiple sites (principal); Z78.0 Asymptomatic menopausal state
CPT/HCPCS: 77080

== ENCOUNTER 2025-07-28 09:38 | Outpatient (CLI) | payer MEDICARE, SELFPAY ==
--- NOTE | ~2025-07-28 | MR_ITS ---
EXAMINATION: MR brain/brain stem wo con DATE: 07/28/2025 10:37 INDICATION: Other symptoms and signs involving cognitive function. TECHNIQUE: Magnetic resonance imaging (MRI) of the brain and brainstem was performed without intravenous contrast. COMPARISON: None. FINDINGS: There are scattered areas of nonspecific increased T2-weighted signal intensity in the cerebral white matter, which is within normal limits for the patient's age. There is no intracranial hemorrhage, acute infarction, or abnormal intracranial mass lesion. The ventricles are normal in size. There are likely changes of ocular lens replacement surgeries. There is mild mucosal thickening in the paranasal sinuses. The mastoid air cells are normal. IMPRESSION: 1. Normal aging brain. Reviewed, dictated and finalized at location E. IMPRESSION: 1. Normal aging brain.
== END 2025-07-28 09:39 | disposition home or self-care (01) ==
LOC: GOSHIMG 09:39
PROVIDERS: PCP Family Medicine; Visit Provider Family Medicine
DX: R41.89 Other symptoms and signs involving cognitive functions and awareness (principal)
CPT/HCPCS: 70551

== ENCOUNTER 2025-08-03 08:29 | Outpatient (CLI) | payer MEDICARE, SELFPAY ==
[2025-08-03 15:51] LABS: Alanine Aminotransferase 15 U/L (6-35); Albumin Level 5.0 g/dL (3.5-5.1); Alkaline Phosphatase 70 U/L (38-126); Anion Gap 9 mmol/L (4-12); Aspartate Amino Transferase 34 U/L (14-36); Bilirubin,Total 0.5 mg/dL (0.2-1.3); Blood Urea Nitrogen 26 mg/dL (7-17); Calcium 9.5 mg/dL (8.4-10.2); Carbon Dioxide 28 mmol/L (22-30); Chloride 104 mmol/L (98-107); Estimated Glomerular Filt Rate > 60; Glucose 111 mg/dL (65-110); Potassium 4.6 mmol/L (3.4-5.0); Sodium 141 mmol/L (137-145); Total Protein 8.3 g/dL (6.3-8.2)
[2025-08-03 18:02] LABS: Hemoglobin A1C 5.7 % (<5.7)
== END 2025-08-03 08:30 | disposition home or self-care (01) ==
LOC: ANHGOSHLAB 08:29
PROVIDERS: PCP Family Medicine; Visit Provider Family Medicine
DX: R73.03 Prediabetes (principal); I10 Essential (primary) hypertension
CPT/HCPCS: 36415; 80053; 83036

== ENCOUNTER 2025-08-05 09:21 | Outpatient (CLI) | payer MEDICARE, SELFPAY ==
--- NOTE | 2025-08-05 09:29 | ECHO_ITS ---
Patient Info Name: Eleni Hull Age: 74 years : 1950 Gender: Female Ht: 59 in Wt: 130 lbs BSA: 1.58 m2 HR: 88 bpm BP: 154 / 71 mmHg Technical Quality: Good Exam Date: 08/05/2025 9:53 AM Patient Status: O Admit Date: 08/05/2025 Exam Type: CA echo doppler color flow Complete two-dimensional, color flow and Doppler transthoracic echocardiogram is performed. Assistant Women'S Tennis Coach: Juan Jose Emery III Attending Provider: Tonya Reynolds Summary 1. Complete two-dimensional, color flow and Doppler transthoracic echocardiogram is performed. 2. Left ventricular chamber dimension is normal. 3. Left ventricular systolic function is normal, estimated at 65-70. 4. The left ventricular diastolic function is grade I diastolic dysfunction. 5. E/e' 10 is mildly elevated. 6. There is mild aortic valve regurgitation. 7. No pulmonary hypertension, estimated pulmonary arterial systolic pressure is 26 mmHg. Left Ventricle E/e' 10 is mildly elevated. Left ventricular chamber dimension is normal. Left ventricular systolic function is normal, estimated at 65-70. The left ventricular diastolic function is grade I diastolic dysfunction. Right Ventricle Right ventricular chamber dimension is normal. Right ventricular systolic function is normal and with normal TAPSE 1.8 cm. Left Atria Left atrial chamber dimension is normal. Right Atria Right atrial chamber dimension is normal. Aortic Valve The aortic valve is trileaflet. There is no aortic valve stenosis. There is mild aortic valve regurgitation. Pulmonic Valve There is no pulmonic regurgitation. Mitral Valve There is no mitral valve stenosis. There is no mitral valve regurgitation. Tricuspid Valve There is no tricuspid valve regurgitation. No pulmonary hypertension, estimated pulmonary arterial systolic pressure is 26 mmHg. Pericardium/Pleural There is no pericardial effusion. Inferior Vena Cava Normal inferior vena cava with >50% collapse upon inspiration consistent with normal right atrial pressure, 5 mmHg. Aorta The aortic root size at the sinus of Valsalva is normal. Left Ventricular Outflow Tract Name Value Normal LVOT 2D LVOT Diameter 2.1 cm LVOT Doppler LVOT Peak Velocity 157 cm/s LVOT Peak Gradient 10 mmHg LVOT Mean Gradient 4 mmHg LVOT VTI 33 cm LVOT VTI/AV VTI Ratio 0.9 LVOT Stroke Volume 118 ml LVOT CO 8.7 l/min LVOT CI 5.5 l/min/m2 Pulmonic Valve Name Value Normal PV Doppler PV Peak Velocity 124 cm/s PV Peak Gradient 6 mmHg PV Mean Gradient 4 mmHg Mitral Valve Name Value Normal MV Doppler MV Peak Gradient 5 mmHg MV Mean Gradient 2 mmHg MV Area (Cont Eq VTI) 4.2 cm2 MV Diastolic Function MV E Peak Velocity 96 cm/s MV A Peak Velocity 129 cm/s MV E/A 0.7 MV Decel Time (PW) 218 ms MV Annular TDI MV E/e' (Septal) 11.0 MV E/e' (Lateral) 9.2 MV E/e' (Average) 10.1 Tricuspid Valve Name Value Normal TV Regurgitation Doppler TR Peak Velocity 231 cm/s TR Peak Gradient 21 mmHg Estimated PAP/RSVP RA Pressure 5 mmHg <=5 PA Systolic Pressure 26 mmHg <36 RV Systolic Pressure 26 mmHg <36 TV Annular TDI TV Lateral Jaqueline s' Velocity 17.9 cm/s >=9.5 Aortic Valve Name Value Normal AV Doppler AV Peak Velocity 173 cm/s AV Peak Gradient 12 mmHg AV Mean Gradient 6 mmHg AV VTI 35 cm AV Area (Cont Eq VTI) 3.3 cm2 >=3.0 AV Area (Cont Eq Jose) 3.2 cm2 AV DI (Jose) 0.91 AV Regurgitation 2D LVOT Area 3.6 cm2 Ventricles Name Value Normal LV Dimensions 2D/MM IVS Diastolic Thickness (2D) 0.8 cm 0.6-1.0 LVID Diastole (2D) 4.0 cm 3.8-5.2 LVIW Diastolic Thickness (2D) 0.9 cm 0.6-0.9 LVID Systole (2D) 2.4 cm 2.2-3.5 LVOT Diameter 2.1 cm LV Mass (2D Cubed) 101.28 g 67.00-162.00 LV Mass Index (2D Cubed) 64 g/m2 43-95 Relative Wall Thickness (2D) 0.43 <=0.42 LV Fractional Shortening/Ejection Fraction 2D/MM LV Fractional Shortening (2D) 41 % 27-45 LV EF (2D Teichholz) 72 % LV Diastolic Volume (4C MOD) 59 ml LV EF (4C MOD) 74 % LV Diastolic Volume (2C MOD) 40 ml LV EF (2C MOD) 73 % LV Diastolic Volume (BP MOD) 49 ml 46-106 LV Diastolic Volume Index (BP MOD) 31 ml/m2 29-61 LV Systolic Volume (BP MOD) 13 ml 14-42 LV Systolic Volume Index (BP MOD) 8 ml/m2 8-24 LV EF (BP MOD) 74 % 54-74 LV Diastolic Length (4C) 7.2 cm LV Systolic Length (4C) 5.5 cm LV Stroke Volume (4C MOD) 44 ml Atria Name Value Normal LA Dimensions LA Volume (4C A-L) 29 ml LA Volume (BP A-L) 38 ml RA Dimensions RA Systolic Major [place] Length (4C) 4.7 cm 2.2-2.8 RA Area (4C) 12.2 cm2 <=18.0 Report Signatures
--- OUTSIDE RECORDS SUMMARY | 2025-08-05 09:35 | XMS_ITS | Clinical Summary ---
Author Organization [facility] Address [address] [place] [address] Care Team Providers Care Small Animal Caretaker Name Role Phone Unavailable Primary Care Provider Unavailabl e Social History Tobacco Use Types Packs/Day Years Used Date Smoking Tobacco: Never Assessed Comments Unknown Sex and Gender Information Value Date Recorded Sex Assigned at Not on file Legal Sex Female 4:33 PM CDT Gender Identity Not on file Sexual Orientation Not on file Plan of Treatment Health Maintenance Due Date Last Done Comments Colorectal Cancer Screening Colonoscopy (10 Years) 1950 Hepatitis C 1968 DTaP, Tdap and Td Vaccines ( 1 - Tdap) 1969 Mammogram Screening 1990 Pneumococcal Vaccine: 50+ Ye ars (1 of 1 - PCV) 2000 Zoster Vaccines (1 of 2) 2000 Dexa Scan (General) 2015 COVID-19 Vaccine ( - 2024-2 6 season) 2025 Influenza Adult (#1) 2025 RSV Immunization or 60+ Years (1 - 1-dose 75+ series) 2025 Hepatitis A Vaccines Aged Out No long er eligible based on patient's age to complete this topic Meningococcal B Vaccine Aged Out No l onger eligible based on patient's age to complete this topic Meningococcal Vaccine Aged Out No biju heather eligible based on patient's age to complete this topic RSV Immunizations Under 20 Months Aged Out No longer eligible based on patient's age to complete this topic
== END 2025-08-05 09:22 | disposition home or self-care (01) ==
LOC: ANHCARD 09:22
PROVIDERS: PCP Family Medicine; Visit Provider Family Medicine
DX: R93.1 Abnormal findings on diagnostic imaging of heart and coronary circulation (principal); I10 Essential (primary) hypertension; R01.1 Cardiac murmur, unspecified
CPT/HCPCS: 93306